=== PATIENT | female | born 1970 | race Caucasian/White ===

== ENCOUNTER → 2016-12-10 | Outpatient (CLI) | payer BC ==
--- NOTE | 2016-12-14 09:15 | MM ---
Reason for exam: screening (asymptomatic). Last mammogram was performed 4 years ago. History: Family history of breast cancer in maternal aunt at age 50 and breast cancer in paternal aunt at age 50. Physical Findings: A clinical breast exam by your physician is recommended on an annual basis and results should be correlated with mammographic findings. MG 3D Screening Mammo W/Cad Bilateral CC and MLO view(s) were taken. Prior study comparison: December 15, 2012, bilateral digital screening mammo w/CAD. There are scattered fibroglandular densities. Focal asymmetry in the right breast upper outer quadrant, stable. No significant changes when compared with prior studies. ASSESSMENT: Benign, BI-RAD 2 RECOMMENDATION: Routine screening mammogram of both breasts in 1 year.
== END | disposition home or self-care (01) ==
LOC: RADMAMWWP 13:02
PROVIDERS: ATTEND Family Medicine
DX: Z12.31 Encounter for screening mammogram for malignant neoplasm of breast (principal)
CPT/HCPCS: 77063; G0202

== ENCOUNTER → 2021-05-22 | Outpatient (CLI) | payer BC ==
--- NOTE | 2021-05-26 09:57 | MM ---
Reason for exam: screening (asymptomatic). Last mammogram was performed 4 years and 5 months ago. History: Family history of breast cancer in maternal aunt at age 50 and breast cancer in paternal aunt at age 50. Physical Findings: A clinical breast exam by your physician is recommended on an annual basis and results should be correlated with mammographic findings. MG 3D Screening Mammo W/Cad Bilateral CC and MLO view(s) were taken. Prior study comparison: December 10, 2016, bilateral MG 3d screening mammo w/cad. There are scattered fibroglandular densities. No significant changes when compared with prior studies. ASSESSMENT: Benign, BI-RAD 2 RECOMMENDATION: Routine screening mammogram of both breasts in 1 year.
== END | disposition home or self-care (01) ==
LOC: RADMAMWWP 13:59
PROVIDERS: ATTEND Obstetrics & Gynecology
DX: Z12.31 Encounter for screening mammogram for malignant neoplasm of breast (principal); Z80.3 Family history of malignant neoplasm of breast
CPT/HCPCS: 77063; 77067

== ENCOUNTER 2021-11-16 14:45 | Emergency (ER) | payer BC ==
[2021-11-16 14:59] VITALS: RESP 18
[2021-11-16] MEDS ORDERED: SODIUM CHLORIDE 0.9% 500 ML 500 ML IV STA (15:22)
--- NOTE | 2021-11-16 15:28 | ED ---
General Adult HPI - General Chief complaint: Abdominal Pain Stated complaint: Bowel Issues Time Seen by Provider: 11/16/21 15:15 Source: patient, RN notes reviewed, old records reviewed Mode of arrival: ambulatory Limitations: no limitations - History of Present Illness Initial comments: 51-year-old female presents to the emergency room with complaints of abdominal bloating and fullness and has not had a good bowel movement in over 2 weeks. She did see her primary care doctor and had blood work and a CAT scan done last Wednesday at [facility]. She was told she was constipated with no bowel obstruction, an umbilical hernia and something on her live and to followup with her primary. Her PCP has her scheduled for an MRI for liver protocol on 11/26/21. Patient denies any pain. She has not noticed any blood in her stool and she denies any fevers or vomiting. She states that her stools have become more narrow, she has had skinny bowel movements over the past 2 weeks. She is concerned about her bowel movements and bloating and sensation of feeling full when eating. -: week(s) (2) Location: abdomen Severity scale (1-10): 0 Associated Symptoms: loss of appetite, other (bloating) - Related Data Allergies Allergy/AdvReac Type Severity Reaction Status Date / Time Sulfa (Sulfonamide Allergy Rash/Hives Verified 11/16/21 15:01 Antibiotics) Review of Systems ROS Statement: Those systems with pertinent positive or pertinent negative responses have been documented in the HPI. ROS Other: All systems not noted in ROS Statement are negative. Past Medical History History of Any Multi-Drug Resistant Organisms: None Reported Past Surgical History: Tonsillectomy, Tubal Ligation Past Psychological History: Anxiety, Depression Smoking Status: Never smoker Past Alcohol Use History: Rare Past Drug Use History: None Reported General Exam Limitations: no limitations General appearance: alert, in no apparent distress Head exam: Present: atraumatic, normocephalic, normal inspection Eye exam: Present: normal appearance, EOMI. Absent: scleral icterus, conjunctival injection Neck exam: Present: normal inspection, full ROM. Absent: tenderness, meningismus, lymphadenopathy Respiratory exam: Present: normal lung sounds bilaterally. Absent: respiratory distress, wheezes, rales, rhonchi, decreased breath sounds Cardiovascular Exam: Present: regular rate, normal rhythm, normal heart sounds. Absent: systolic murmur, diastolic murmur, rubs, gallop, clicks GI/Abdominal exam: Present: soft. Absent: distended, tenderness, guarding, rebound, rigid Extremities exam: Present: normal inspection, full ROM, normal capillary refill. Absent: tenderness, pedal edema, joint swelling, calf tenderness Back exam: Present: normal inspection, full ROM. Absent: tenderness, CVA tenderness (R), CVA tenderness (L), rash noted Neurological exam: Present: alert, oriented X3 Psychiatric exam: Present: normal affect, normal mood, anxious Skin exam: Present: warm, dry, intact, normal color. Absent: rash, cyanosis, diaphoretic Course Vital Signs 11/16/21 11/16/21 14:50 18:13 Temperature 97.6 F 98.1 F Pulse Rate 98 85 Respiratory 18 18 Rate Blood Pressure 162/95 144/83 O2 Sat by Pulse 100 97 Oximetry Medical Decision Making - Medical Decision Making 51-year-old well appearing female presents with complaints of abdominal bloating and fullness and has not had a good bowel movement in over 2 weeks. X-ray of the abdomen shows nonspecific nonobstructive bowel gas pattern. There is air-fluid levels seen of the right hemicolon. There is no visceromegaly or pneumoperitoneum. Records of CT abdomen and pelvis with oral and IV contrast that was completed at [facility] were reviewed. Impression was no evidence of acute abdominal process, large stool burden throughout the colon. There was a nonobstructing left renal calculus. Fibroid uterus, hepatic cyst, an indeterminate lesion measuring 15 mm in the right hepatic lobe could be confirmed as a hemangioma with MRI. Patient states that she does have a MRI appointment on November 26. Vital signs are stable. Labs in the ER today are unremarkable with no significant change from labs obtained at [facility] on November 07. Patient will be discharged home and directed to follow with her primary care doctor and keep her appointment for MRI as scheduled. Return to the emergency room with any new or concerning symptoms. Advance her diet slowly. Patient is agreeable to this plan of care. Case discussed with Dr. Quiroz - Lab Data Result diagrams: 11/16/21 15:43 11/16/21 15:43 Lab Results 11/16/21 11/16/21 11/16/21 Range/Units 15:32 15:43 15:43 WBC 5.7 (3.8-10.6) k/uL RBC 4.48 (3.80-5.40) m/uL Hgb 14.4 (11.4-16.0) gm/dL Hct 41.6 (34.0-46.0) % MCV 92.7 (80.0-100.0) fL MCH 32.1 (25.0-35.0) pg MCHC 34.7 (31.0-37.0) g/dL RDW 11.9 (11.5-15.5) % Plt Count 306 (150-450) k/uL MPV 6.8 Neutrophils % 50 % Lymphocytes % 37 % Monocytes % 5 % Eosinophils % 6 % Basophils % 1 % Neutrophils # 2.9 (1.3-7.7) k/uL Lymphocytes # 2.1 (1.0-4.8) k/uL Monocytes # 0.3 (0-1.0) k/uL Eosinophils # 0.4 (0-0.7) k/uL Basophils # 0.0 (0-0.2) k/uL PT 10.8 (9.0-12.0) sec INR 1.0 (<1.2) APTT 25.9 (22.0-30.0) sec Sodium (137-145) mmol/L Potassium (3.5-5.1) mmol/L Chloride (98-107) mmol/L Carbon Dioxide (22-30) mmol/L Anion Gap mmol/L BUN (7-17) mg/dL Creatinine (0.52-1.04) mg/dL Est GFR (CKD-EPI)AfAm (>60 ml/min/1.73 sqM) Est GFR (CKD-EPI)NonAf (>60 ml/min/1.73 sqM) Glucose (74-99) mg/dL Plasma Lactic Acid Taurus (0.7-2.0) mmol/L Calcium (8.4-10.2) mg/dL Total Bilirubin (0.2-1.3) mg/dL AST (14-36) U/L ALT (4-34) U/L Alkaline Phosphatase (38-126) U/L Total Protein (6.3-8.2) g/dL Albumin (3.5-5.0) g/dL Amylase (30-110) U/L Lipase (23-300) U/L Urine Color Light Yellow Urine Appearance Cloudy H (Clear) Urine pH 6.5 (5.0-8.0) Ur Specific Carver 1.004 (1.001-1.035) Urine Protein Negative (Negative) Urine Glucose (UA) Negative (Negative) Urine Ketones Negative (Negative) Urine Blood Small H (Negative) Urine Nitrite Negative (Negative) Urine Bilirubin Negative (Negative) Urine Urobilinogen <2.0 (<2.0) mg/dL Ur Leukocyte Esterase Large H (Negative) Urine RBC 2 (0-5) /hpf Urine WBC 7 H (0-5) /hpf Ur Squamous Epith Cells 1 (0-4) /hpf Amorphous Sediment Rare H (None) /hpf Urine Bacteria Many H (None) /hpf 11/16/21 11/16/21 Range/Units 15:43 15:43 WBC (3.8-10.6) k/uL RBC (3.80-5.40) m/uL Hgb (11.4-16.0) gm/dL Hct (34.0-46.0) % MCV (80.0-100.0) fL MCH (25.0-35.0) pg MCHC (31.0-37.0) g/dL RDW (11.5-15.5) % Plt Count (150-450) k/uL MPV Neutrophils % % Lymphocytes % % Monocytes % % Eosinophils % % Basophils % % Neutrophils # (1.3-7.7) k/uL Lymphocytes # (1.0-4.8) k/uL Monocytes # (0-1.0) k/uL Eosinophils # (0-0.7) k/uL Basophils # (0-0.2) k/uL PT (9.0-12.0) sec INR (<1.2) APTT (22.0-30.0) sec Sodium 137 (137-145) mmol/L Potassium 4.2 (3.5-5.1) mmol/L Chloride 105 (98-107) mmol/L Carbon Dioxide 25 (22-30) mmol/L Anion Gap 7 mmol/L BUN 9 (7-17) mg/dL Creatinine 0.56 (0.52-1.04) mg/dL Est GFR (CKD-EPI)AfAm >90 (>60 ml/min/1.73 sqM) Est GFR (CKD-EPI)NonAf >90 (>60 ml/min/1.73 sqM) Glucose 109 H (74-99) mg/dL Plasma Lactic Acid Taurus 0.8 (0.7-2.0) mmol/L Calcium 9.0 (8.4-10.2) mg/dL Total Bilirubin 0.4 (0.2-1.3) mg/dL AST 28 (14-36) U/L ALT 16 (4-34) U/L Alkaline Phosphatase 63 (38-126) U/L Total Protein 6.5 (6.3-8.2) g/dL Albumin 3.9 (3.5-5.0) g/dL Amylase 58 (30-110) U/L Lipase 64 (23-300) U/L Urine Color Urine Appearance (Clear) Urine pH (5.0-8.0) Ur Specific Carver (1.001-1.035) Urine Protein (Negative) Urine Glucose (UA) (Negative) Urine Ketones (Negative) Urine Blood (Negative) Urine Nitrite (Negative) Urine Bilirubin (Negative) Urine Urobilinogen (<2.0) mg/dL Ur Leukocyte Esterase (Negative) Urine RBC (0-5) /hpf Urine WBC (0-5) /hpf Ur Squamous Epith Cells (0-4) /hpf Amorphous Sediment (None) /hpf Urine Bacteria (None) /hpf Disposition Clinical Impression: Abdominal pain Disposition: HOME SELF-CARE Condition: Good Instructions (If sedation given, give patient instructions): Abdominal Pain (ED) Additional Instructions: Advance your diet slowly and increase your fluid intake. Keep your appointment for your MRI scheduled on November 26. Follow-up with your primary care doctor next week as needed. Return to the emergency room with any new or concerning symptoms including increased pain, fevers or persistent vomiting.. Is patient prescribed a controlled substance at d/c from ED?: No Referrals: Juan Richter MD [Primary Care Provider] - 1-2 days Time of Disposition: 17:56
--- NOTE | 2021-11-16 15:44 | XR ---
EXAMINATION TYPE: XR KUB DATE OF EXAM: 11/16/2021 3:33 PM CLINICAL HISTORY: Abdominal pain TECHNIQUE: Single supine KUB image of the abdomen is obtained. COMPARISON: None. FINDINGS: Some air-fluid levels are seen in the right colon. There is a paucity of gas over the pelvi s. No dilated loops of small bowel are noted.. Gas and fecal material is seen in non-distended colon. There is no visceromegaly, pneumoperitoneum, or abnormal calcification appreciated. The lung bases a re clear and the osseous structures are intact. IMPRESSION: Nonspecific, nonobstructive bowel gas pattern. A few air-fluid levels are seen over the right hemicol on.
[2021-11-16 16:11] LABS: Partial Thromboplastin Time 25.9 sec (22.0-30.0); Prothrombin Time 10.8 sec (9.0-12.0)
[2021-11-16 16:12] LABS: ALT 16 U/L (4-34); AST 28 U/L (14-36); African American GFR (CKD) >90 (>60 ml/min/1.73 sqM); Albumin 3.9 g/dL (3.5-5.0); Alkaline Phosphatase 63 U/L (38-126); Amylase 58 U/L (30-110); Anion Gap 7 mmol/L; Blood Urea Nitrogen 9 mg/dL (7-17); Carbon Dioxide 25 mmol/L (22-30); Chloride 105 mmol/L (98-107); Glucose 109 mg/dL (74-99); Lipase 64 U/L (23-300); Non-African American GFR(CKD) >90 (>60 ml/min/1.73 sqM); Potassium 4.2 mmol/L (3.5-5.1); Sodium 137 mmol/L (137-145); Total Bilirubin 0.4 mg/dL (0.2-1.3); Total Protein 6.5 g/dL (6.3-8.2)
[2021-11-16 16:13] LABS: Basophils % (A) 1 %; Eosinophils # (A) 0.4 k/uL (0-0.7); Eosinophils % (A) 6 %; HCT 41.6 % (34.0-46.0); HGB 14.4 gm/dL (11.4-16.0); Lymphocytes # (A) 2.1 k/uL (1.0-4.8); Lymphocytes % (A) 37 %; MCH 32.1 pg (25.0-35.0); MCHC 34.7 g/dL (31.0-37.0); MCV 92.7 fL (80.0-100.0); Mean Platelet Volume 6.8; Monocytes # (A) 0.3 k/uL (0-1.0); Monocytes % (A) 5 %; Neutrophils # (A) 2.9 k/uL (1.3-7.7); Neutrophils % (A) 50 %; Platelet Count 306 k/uL (150-450); RBC 4.48 m/uL (3.80-5.40); RDW 11.9 % (11.5-15.5); WBC 5.7 k/uL (3.8-10.6)
[2021-11-16 16:22] LABS: Amorphous Sediment,Urine Rare /hpf; Appearance,Urine Cloudy (Clear); Bacteria,Urine Many /hpf; Bilirubin,Urine Negative (Negative); Blood,Urine Small (Negative); Color,Urine Light Yellow; Glucose,Urine (UA) Negative (Negative); Ketones,Urine Negative (Negative); Leukocyte Esterase,Urine Large (Negative); Nitrite,Urine Negative (Negative); PH, Urine 6.5 (5.0-8.0); Protein,Urine Negative (Negative); RBC,Urine 2 /hpf (0-5); Specific Gravity,Urine 1.004 (1.001-1.035); Squamous Epithelial Cell,Urine 1 /hpf (0-4); Urobilinogen,Urine <2.0 mg/dL (<2.0); WBC,Urine 7 /hpf (0-5)
[2021-11-16 18:14] VITALS: BP 144/83; PULSE 85; TEMP 98.1
== END 2021-11-16 18:14 | disposition home or self-care (01) ==
LOC: EC 14:45
DX: R14.0 Abdominal distension (gaseous) (principal); F41.9 Anxiety disorder, unspecified; F32.A Depression, unspecified; Z88.2 Allergy status to sulfonamides; Z98.51 Tubal ligation status
CPT/HCPCS: 36415; 74018; 80053; 81001; 82150; 83605; 83690; 85025; 85610; 85730; 99284

== ENCOUNTER 2021-12-08 15:06 | Emergency (ER) | payer BC, OTHER ==
[2021-12-08] MEDS ORDERED: SODIUM CHLORIDE 0.9% 1,000 ML IV STA (16:23)
[2021-12-08] MEDS ORDERED: ONDANSETRON 4 MG/2 ML VIAL IVP STA (16:23)
[2021-12-08] MEDS ORDERED: FAMOTIDINE 20 MG/2 ML VIAL IV STA (16:35)
[2021-12-08 17:05] LABS: Basophils % (A) 0 %; Eosinophils # (A) 0.1 k/uL (0-0.7); Eosinophils % (A) 2 %; HCT 39.6 % (34.0-46.0); HGB 13.3 gm/dL (11.4-16.0); Lymphocytes # (A) 0.9 k/uL (1.0-4.8); Lymphocytes % (A) 19 %; MCH 32.1 pg (25.0-35.0); MCHC 33.5 g/dL (31.0-37.0); MCV 95.7 fL (80.0-100.0); Monocytes # (A) 0.2 k/uL (0-1.0); Monocytes % (A) 4 %; Neutrophils # (A) 3.3 k/uL (1.3-7.7); Neutrophils % (A) 73 %; Platelet Count 220 k/uL (150-450); RBC 4.14 m/uL (3.80-5.40); RDW 12.7 % (11.5-15.5); WBC 4.6 k/uL (3.8-10.6)
[2021-12-08 17:09] LABS: Appearance,Urine Cloudy (Clear); Bacteria,Urine Many /hpf; Bilirubin,Urine Negative (Negative); Blood,Urine Trace (Negative); Color,Urine Yellow; Glucose,Urine (UA) Negative (Negative); Ketones,Urine Negative (Negative); Leukocyte Esterase,Urine Large (Negative); Mucus,Urine Few /hpf; Nitrite,Urine Negative (Negative); Protein,Urine Trace (Negative); RBC,Urine 5 /hpf (0-5); Specific Gravity,Urine 1.021 (1.001-1.035); Squamous Epithelial Cell,Urine 8 /hpf (0-4); WBC,Urine 81 /hpf (0-5)
[2021-12-08 17:18] LABS: ALT 13 U/L (4-34); AST 21 U/L (14-36); African American GFR (CKD) >90 (>60 ml/min/1.73 sqM); Albumin 3.2 g/dL (3.5-5.0); Alkaline Phosphatase 64 U/L (38-126); Anion Gap 6 mmol/L; Blood Urea Nitrogen 7 mg/dL (7-17); Calcium 7.7 mg/dL (8.4-10.2); Carbon Dioxide 24 mmol/L (22-30); Chloride 105 mmol/L (98-107); Glucose 93 mg/dL (74-99); Lipase 53 U/L (23-300); Non-African American GFR(CKD) >90 (>60 ml/min/1.73 sqM); Partial Thromboplastin Time 22.7 sec (22.0-30.0); Potassium 3.4 mmol/L (3.5-5.1); Prothrombin Time 10.6 sec (9.0-12.0); Sodium 135 mmol/L (137-145); Total Bilirubin 0.4 mg/dL (0.2-1.3); Total Protein 5.8 g/dL (6.3-8.2)
--- NOTE | 2021-12-08 17:24 | ED ---
General Adult HPI - General Chief complaint: Abdominal Pain Stated complaint: Nausea/Vomiting/Female GI Time Seen by Provider: 12/08/21 15:41 Source: patient Mode of arrival: ambulatory Limitations: no limitations - History of Present Illness Initial comments: This 51-year-old female presents emergency department with abdominal pain, nausea, vomiting and fever yesterday. Patient states over the last month she has been having "bowel issues for the last 4 weeks." Patient states she has been trying the soft bland diet for the last month until she sees Dr. Yu on January 13. Patient states she has been having episodes of constipation and abdominal bloating for the last month, but over the last week felt okay until yesterday. Patient states yesterday morning at 3 AM patient woke up with abdominal pain and began having nausea and diarrhea that lasted until about 10 AM. Patient states she took her temperature around noon when she had a fever of 101.3. Patient began taking Tylenol at this time which did decrease her temperature. Patient stated after taking Tylenol 2 times yesterday at 12 PM and 8 PM she has not had any fever, nausea, vomiting or diarrhea since her presents here today for evaluation due to her vomiting and diarrhea yesterday. Patient states since yesterday she has still been having diffuse pain in all of her abdomen, however it seems a little bit worse and her left lower and left upper quadrant pain. Patient denies any chest pain, shortness of breath, headache, lightheadedness, dizziness, weakness, change in vision, changes in urination/burning/frequency/hesitancy/dribbling. Patient denies any vomiting, diarrhea or fever today but states she still having the pain. - Related Data Home Medications Medication Instructions Recorded Confirmed ALPRAZolam [Xanax] 1 mg PO DAILY 12/08/21 12/08/21 ALPRAZolam [Xanax] 4 mg PO HS 12/08/21 12/08/21 Venlafaxine HCl ER [Effexor Xr] 75 mg PO DAILY 12/08/21 12/08/21 Venlafaxine HCl [Effexor XR] 150 mg PO DAILY 12/08/21 12/08/21 Previous Rx's Medication Instructions Recorded Cephalexin [Keflex] 1,000 mg PO Q12HR #20 cap 12/08/21 Famotidine [Pepcid] 20 mg PO BID #28 tablet 12/08/21 Omeprazole 20 mg PO BID #28 tab 12/08/21 Allergies Allergy/AdvReac Type Severity Reaction Status Date / Time Sulfa (Sulfonamide Allergy Rash/Hives Verified 12/08/21 18:28 Antibiotics) Review of Systems ROS Statement: Those systems with pertinent positive or pertinent negative responses have been documented in the HPI. ROS Other: All systems not noted in ROS Statement are negative. Past Medical History Past Medical History: No Reported History History of Any Multi-Drug Resistant Organisms: None Reported Past Surgical History: Tonsillectomy, Tubal Ligation Past Psychological History: Anxiety, Depression Smoking Status: Never smoker Past Alcohol Use History: Rare Past Drug Use History: None Reported General Exam Limitations: no limitations General appearance: alert, in no apparent distress Head exam: Present: atraumatic, normocephalic Eye exam: Present: normal appearance, PERRL, EOMI Pupils: Present: normal accommodation ENT exam: Present: mucous membranes moist Neck exam: Present: full ROM. Absent: tenderness, meningismus Respiratory exam: Present: normal lung sounds bilaterally. Absent: respiratory distress, wheezes, rales, rhonchi, stridor Cardiovascular Exam: Present: regular rate, normal rhythm, normal heart sounds. Absent: systolic murmur, diastolic murmur, rubs, gallop, clicks GI/Abdominal exam: Present: soft, tenderness (Tender to left lower quadrant and left upper quadrant lower>upper), normal bowel sounds. Absent: distended, guarding, rebound, rigid Extremities exam: Present: full ROM, normal capillary refill. Absent: pedal edema, joint swelling, calf tenderness Back exam: Present: normal inspection, full ROM. Absent: CVA tenderness (R), CVA tenderness (L), paraspinal tenderness, vertebral tenderness Neurological exam: Present: alert, oriented X3, CN II-XII intact Psychiatric exam: Present: normal affect, normal mood Skin exam: Present: warm, dry, intact, normal color. Absent: rash Course Vital Signs 12/08/21 12/08/21 12/08/21 15:07 17:15 21:23 Temperature 98.6 F 98.7 F Pulse Rate 100 62 82 Respiratory 16 18 19 Rate Blood Pressure 146/81 132/82 141/80 O2 Sat by Pulse 99 99 97 Oximetry Medical Decision Making - Medical Decision Making This 51-year-old female presents emergency Department with generalized abdominal pain, worse in the upper left and lower left quadrants over the last couple days. Patient has been having abdominal issues over the last month and does have a follow-up appointment with Dr. Yu in January. Labs on any acute abnormalities. Patient does have urinary tract infection and was given 1 g of Rocephin IV along with Keflex prescription for home. CT without free fluid in the pelvis of uncertain significance. No evidence of appendicitis. Nonobstructing small left 3 mm calculus at the lower pole of the left kidney. Patient without any white blood cell count, fever, or CVA tenderness. I did instruct patient to return to the emergency department if she does get fever, back pain, or experiences any nausea, vomiting. Strict return precautions were discussed. Patient instructed to follow up with her primary care provider in next 1-2 days, I was able to provide her with a couple new primary care provid ers as she stated she would like to see somebody else. I did instruct her to call Dr. Yu's office tomorrow morning to see if she could get her appointment moved up. Patient verbally agreed to plan. Patient sent home in stable condition. Case discussed with my attending, Dr. Bear who instructed me to discharge patient on antibiotics along with Tylenol 3, famotidine and omeprazole. - Lab Data Result diagrams: 12/08/21 16:55 12/08/21 16:55 Lab Results 12/08/21 12/08/21 12/08/21 Range/Units 16:55 16:55 16:55 WBC 4.6 (3.8-10.6) k/uL RBC 4.14 (3.80-5.40) m/uL Hgb 13.3 (11.4-16.0) gm/dL Hct 39.6 (34.0-46.0) % MCV 95.7 (80.0-100.0) fL MCH 32.1 (25.0-35.0) pg MCHC 33.5 (31.0-37.0) g/dL RDW 12.7 (11.5-15.5) % Plt Count 220 (150-450) k/uL MPV 7.0 Neutrophils % 73 % Lymphocytes % 19 % Monocytes % 4 % Eosinophils % 2 % Basophils % 0 % Neutrophils # 3.3 (1.3-7.7) k/uL Lymphocytes # 0.9 L (1.0-4.8) k/uL Monocytes # 0.2 (0-1.0) k/uL Eosinophils # 0.1 (0-0.7) k/uL Basophils # 0.0 (0-0.2) k/uL PT (9.0-12.0) sec INR (<1.2) APTT (22.0-30.0) sec Sodium 135 L (137-145) mmol/L Potassium 3.4 L (3.5-5.1) mmol/L Chloride 105 (98-107) mmol/L Carbon Dioxide 24 (22-30) mmol/L Anion Gap 6 mmol/L BUN 7 (7-17) mg/dL Creatinine 0.50 L (0.52-1.04) mg/dL Est GFR (CKD-EPI)AfAm >90 (>60 ml/min/1.73 sqM) Est GFR (CKD-EPI)NonAf >90 (>60 ml/min/1.73 sqM) Glucose 93 (74-99) mg/dL Plasma Lactic Acid Taurus (0.7-2.0) mmol/L Calcium 7.7 L (8.4-10.2) mg/dL Magnesium (1.6-2.3) mg/dL Total Bilirubin 0.4 (0.2-1.3) mg/dL AST 21 (14-36) U/L ALT 13 (4-34) U/L Alkaline Phosphatase 64 (38-126) U/L Total Protein 5.8 L (6.3-8.2) g/dL Albumin 3.2 L (3.5-5.0) g/dL Lipase 53 (23-300) U/L Urine Color Yellow Urine Appearance Cloudy H (Clear) Urine pH 6.0 (5.0-8.0) Ur Specific [place] 1.021 (1.001-1.035) Urine Protein Trace H (Negative) Urine Glucose (UA) Negative (Negative) Urine Ketones Negative (Negative) Urine Blood Trace H (Negative) Urine Nitrite Negative (Negative) Urine Bilirubin Negative (Negative) Urine Urobilinogen 2.0 (<2.0) mg/dL Ur Leukocyte Esterase Large H (Negative) Urine RBC 5 (0-5) /hpf Urine WBC 81 H (0-5) /hpf Ur Squamous Epith Cells 8 H (0-4) /hpf Urine Bacteria Many H (None) /hpf Urine Mucus Few H (None) /hpf 12/08/21 12/08/21 12/08/21 Range/Units 16:55 16:55 16:55 WBC (3.8-10.6) k/uL RBC (3.80-5.40) m/uL Hgb (11.4-16.0) gm/dL Hct (34.0-46.0) % MCV (80.0-100.0) fL MCH (25.0-35.0) pg MCHC (31.0-37.0) g/dL RDW (11.5-15.5) % Plt Count (150-450) k/uL MPV Neutrophils % % Lymphocytes % % Monocytes % % Eosinophils % % Basophils % % Neutrophils # (1.3-7.7) k/uL Lymphocytes # (1.0-4.8) k/uL Monocytes # (0-1.0) k/uL Eosinophils # (0-0.7) k/uL Basophils # (0-0.2) k/uL PT 10.6 (9.0-12.0) sec INR 1.0 (<1.2) APTT 22.7 (22.0-30.0) sec Sodium (137-145) mmol/L Potassium (3.5-5.1) mmol/L Chloride (98-107) mmol/L Carbon Dioxide (22-30) mmol/L Anion Gap mmol/L BUN (7-17) mg/dL Creatinine (0.52-1.04) mg/dL Est GFR (CKD-EPI)AfAm (>60 ml/min/1.73 sqM) Est GFR (CKD-EPI)NonAf (>60 ml/min/1.73 sqM) Glucose (74-99) mg/dL Plasma Lactic Acid Taurus 0.7 (0.7-2.0) mmol/L Calcium (8.4-10.2) mg/dL Magnesium 2.0 (1.6-2.3) mg/dL Total Bilirubin (0.2-1.3) mg/dL AST (14-36) U/L ALT (4-34) U/L Alkaline Phosphatase (38-126) U/L Total Protein (6.3-8.2) g/dL Albumin (3.5-5.0) g/dL Lipase (23-300) U/L Urine Color Urine Appearance (Clear) Urine pH (5.0-8.0) Ur Specific [place] (1.001-1.035) Urine Protein (Negative) Urine Glucose (UA) (Negative) Urine Ketones (Negative) Urine Blood (Negative) Urine Nitrite (Negative) Urine Bilirubin (Negative) Urine Urobilinogen (<2.0) mg/dL Ur Leukocyte Esterase (Negative) Urine RBC (0-5) /hpf Urine WBC (0-5) /hpf Ur Squamous Epith Cells (0-4) /hpf Urine Bacteria (None) /hpf Urine Mucus (None) /hpf Disposition Clinical Impression: Abdominal pain, Urinary tract infection, Kidney stone on left side Disposition: HOME SELF-CARE Condition: Stable Instructions (If sedation given, give patient instructions): Kidney Stones (ED), Urinary Tract Infection in Women (ED), Abdominal Pain (ED) Prescriptions: Cephalexin [Keflex] 1,000 mg PO Q12HR #20 cap Omeprazole 20 mg PO BID #28 tab Famotidine [Pepcid] 20 mg PO BID #28 tablet Is patient prescribed a controlled substance at d/c from ED?: No Referrals: Juan Richter MD [Primary Care Provider] - 1-2 days Yaneth Yu MD [STAFF PHYSICIAN] - 1-2 days Rachel Galeano NPC [STAFF PHYSICIAN] - 1-2 days Manohar Salguero [STAFF PHYSICIAN] - 1-2 days Time of Disposition: 20:29
--- NOTE | 2021-12-08 18:28 | CT ---
EXAMINATION TYPE: CT abdomen pelvis w con DATE OF EXAM: 12/08/2021 COMPARISON: 11/07/2021 HISTORY: Abdominal pain with nausea, vomiting and diarrhea. CT DLP: 1441.6 mGycm Automated exposure control for dose reduction was used. CONTRAST: Performed with IV Contrast, patient injected with 100 mL of Isovue 300. Images obtained from the diaphragm to the floor the pelvis with IV contrast. Lung bases are clear. There is no pleural effusion. Heart size is normal. There is no pericardial eff usion. Liver has normal size. There is 5 cm cyst in the anterior right lobe of the liver. There is 1 cm hypodensity consistent with cyst in the inferior right lobe of the liver. Gallbladder appears norm al. There is a phrygian cap on the gallbladder. Spleen is intact. There is no pancreatic mass. Stomac h is intact. There is no adrenal mass. Kidneys show satisfactory contrast opacification. There is a 3 mm calculus lower pole left kidney. There is no hydronephrosis. The ureters are not dilated. Delayed images show normal renal excretion. Bladder distends smoothly. There is no inguinal hernia. Uterus is anteverted. There is small amount of low-density fluid in the pelvis. There is no sign of a pelvic mass. There i s no evidence of thickened appendix. Appendix appears to be posterior and small. There is no mesenteric edema. There is no ascites or free air. There is no bowel obstruction. The lumbar vertebrae have normal alignment. There is vacuum disc at L4-5 and L5-S1. There is no compr ession fracture. The bony pelvis appears intact. IMPRESSION: Small amount of low-density free fluid in the pelvis of uncertain significance. No evidence of append icitis. Nonobstructing small left renal calculus.
[2021-12-08] MEDS ORDERED: PANTOPRAZOLE 40 MG TABLET PO STA (20:22)
[2021-12-08] MEDS ORDERED: NITROFURANTOIN MONOHYD/M-CRYST 100 MG CAP PO STA (20:22)
[2021-12-08] MEDS ORDERED: ACET/COD 300 MG/30 MG STARTER PACK 6 TAB BTL PO STA (20:22)
[2021-12-08] MEDS ORDERED: cefTRIAXone IN SWFI 1,000 MG/10 ML SYRINGE IVP STA ×2 (20:34→20:44)
[2021-12-08 21:32] VITALS: BP 141/80; PULSE 82; RESP 19; TEMP 98.7
== END 2021-12-08 21:30 | disposition home or self-care (01) ==
LOC: EC 15:06
DX: N39.0 Urinary tract infection, site not specified (principal); N20.0 Calculus of kidney; F32.A Depression, unspecified; F41.9 Anxiety disorder, unspecified; Z79.899 Other long term (current) drug therapy
CPT/HCPCS: 36415; 93005; 80053; 83605; 83690; 83735; 85025; 85610; 85730; 81001; 87086; 74177; 99284; 96374; 96375 ×2; 96376; 96361 ×2; J2405; J0696; Q9967

== ENCOUNTER 2021-12-19 10:41 | Day surgery (SDC) | payer BC, OTHER ==
[2021-12-17 12:39] VITALS: BMI 34.7
[~2021-12-19 10:41] MED LIST: LACTATED RINGERS 1,000 ML IV SCH
[2021-12-19 11:35] VITALS: TEMP 97
[2021-12-19] MEDS ORDERED: LIDOCAINE 1% INJ 10MG/ML (20 ML MDV) ONE (13:16)
[2021-12-19] MEDS ORDERED: PROPOFOL 10 MG/ML 20 ML VIAL IV ONE (13:16)
--- NOTE | 2021-12-19 13:45 | P.PCN ---
Date of Procedure: 12/19/21 Procedure(s) Performed: Brief history: Patient is a pleasant 51-year-old white female scheduled for an elective upper endoscopy as well as colonoscopy as a part of evaluation of epigastric pain, lower abdominal pain and change in bowel habits for the last 7-8 weeks duration. Procedure performed: Esophagogastroduodenoscopy with biopsy Colonoscopy Preoperative diagnosis: Epigastric and left upper abdominal pain 6 weeks duration Change in bowel habits Anesthesia: MAC Procedure: After informed consent was obtained from the patient was brought into the endoscopy unit and IV sedation was administered by anesthesia under continuous monitoring. Initially upper endoscopy was done. The Olympus GF 160 video endoscope was inserted inserted into the mouth and esophagus intubated without any difficulty and was gradually advanced into the stomach and duodenum and carefully examined. The bulb and second part of the duodenum appeared normal. The scope was then withdrawn into the stomach adequately insufflated with air and upon careful examination the antrum had patchy areas of erythema in the prepyloric area which was biopsied. The body, cardia and fundus appeared normal. The scope was then withdrawn into the esophagus. The GE junction was located at 40 cm to the incisors. It appeared regular with no erythema erosions or ulcerations. Rest of the esophagus appeared normal. Abscesses were done from the distal esophagus Patient tolerated the procedure well. At this time the patient continued to remain sedation. Initial digital rectal examination was normal. Olympus CF 160 video colonoscope was then inserted into the rectum and gradually advanced to the cecum without any difficulty. Careful examination was performed as the scope was gradually being withdrawn. The prep was excellent. The cecum, ascending colon, transverse colon, descending colon, sigmoid colon and rectum appeared normal. Retroflexion was performed in the rectum and no lesions were noted. Patient tolerated the procedure well. Impression: 1. Upper endoscopy revealed minimal antral gastritis but no evidence of esophagitis or peptic ulcer 2. Colonoscopy was within normal limits with no evidence of colorectal Recommendations: Findings of this examination were discussed with the patient as well as her family. She was advised to follow with the biopsy results. Repeat screening colonoscopy in 10 years.
[2021-12-19 13:51] VITALS: RESP 16
[2021-12-19 14:12] VITALS: BP 137/84; PULSE 79
== END 2021-12-19 14:43 | disposition home or self-care (01) ==
LOC: ORWHC2ENDO 10:41
PROVIDERS: ATTEND Internal Medicine Gastroenterology
DX: K29.70 Gastritis, unspecified, without bleeding (principal)
CPT/HCPCS: 45378; 43239; 81025; 88305; J2001; J2704

== ENCOUNTER 2023-09-24 00:28 | Observation (INO) | payer BC, OTHER ==
[2023-09-24 01:39] LABS: Basophils # (A) 0.1 k/uL (0-0.2); Basophils % (A) 1 %; Eosinophils # (A) 0.3 k/uL (0-0.7); Eosinophils % (A) 3 %; HCT 46.3 % (34.0-46.0); HGB 15.8 gm/dL (11.4-16.0); Lymphocytes # (A) 2.3 k/uL (1.0-4.8); Lymphocytes % (A) 23 %; MCH 31.6 pg (25.0-35.0); MCHC 34.2 g/dL (31.0-37.0); MCV 92.2 fL (80.0-100.0); Mean Platelet Volume 7.3; Monocytes # (A) 0.3 k/uL (0-1.0); Monocytes % (A) 3 %; Neutrophils # (A) 7.1 k/uL (1.3-7.7); Neutrophils % (A) 70 %; Platelet Count 252 k/uL (150-450); RBC 5.02 m/uL (3.80-5.40); RDW 12.7 % (11.5-15.5); WBC 10.2 k/uL (3.8-10.6)
[2023-09-24] MEDS ORDERED: SODIUM CHLORIDE 0.9% 1,000 ML IV ONE (01:40)
[2023-09-24] MEDS ORDERED: MORPHINE SULFATE 4 MG/ML SYRINGE IVP STA (01:40)
[2023-09-24] MEDS ORDERED: ONDANSETRON 4 MG/2 ML VIAL IVP STA (01:40)
[2023-09-24 01:54] LABS: ALT 17 U/L (4-34); AST 29 U/L (14-36); African American GFR (CKD) >90 (>60 ml/min/1.73 sqM); Albumin 4.3 g/dL (3.5-5.0); Alkaline Phosphatase 83 U/L (38-126); Amylase 82 U/L (30-110); Anion Gap 11 mmol/L; Blood Urea Nitrogen 14 mg/dL (7-17); Calcium 9.5 mg/dL (8.4-10.2); Carbon Dioxide 26 mmol/L (22-30); Chloride 101 mmol/L (98-107); Glucose 105 mg/dL (74-99); Lipase 97 U/L (23-300); Non-African American GFR(CKD) >90 (>60 ml/min/1.73 sqM); Potassium 4.2 mmol/L (3.5-5.1); Sodium 138 mmol/L (137-145); Total Bilirubin 0.5 mg/dL (0.2-1.3); Total Protein 7.3 g/dL (6.3-8.2)
--- NOTE | 2023-09-24 02:51 | ED ---
General Adult HPI - General Source: patient, RN notes reviewed Mode of arrival: ambulatory Limitations: no limitations <Gema Ryan - Last Filed: 09/25/23 16:19> <Julia Arevalo - Last Filed: 09/25/23 17:34> - General Chief complaint: Abdominal Pain Stated complaint: Abdominal Pain Time Seen by Provider: 09/24/23 01:12 - History of Present Illness Initial comments: 53-year-old female with past medical history presents the emergency department with a chief complaint of right upper quadrant abdominal pain. She reports sudden onset approximately 10:30 PM. It is sharp. It radiates to her right upper shoulder blade. It is not aggravated by anything. She did not take anything at home prior to arrival. She reports associated nausea. Denies known fevers chills, vomiting, changes in stool, hematemesis. Denies recent alcohol use. Denies history of cholecystectomy. (Gema Ryan) - Related Data Home Medications Medication Instructions Recorded Confirmed ALPRAZolam [Xanax] 1 mg PO BID PRN 09/24/23 09/24/23 Venlafaxine HCl ER [Effexor XR] 37.5 mg PO HS 09/24/23 09/24/23 buPROPion [Wellbutrin] 100 mg PO DAILY 09/24/23 09/24/23 traZODone HCL [Desyrel] 50 mg PO HS 09/24/23 09/24/23 Allergies Allergy/AdvReac Type Severity Reaction Status Date / Time Sulfa (Sulfonamide Allergy Rash/Hives Verified 09/24/23 00:35 Antibiotics) sulfamethoxazole Allergy Rash/Hives Verified 09/24/23 08:52 [From Bactrim] trimethoprim [From Bactrim] Allergy Rash/Hives Verified 09/24/23 08:52 Review of Systems ROS Other: All systems not noted in ROS Statement are negative. <Gema Ryan - Last Filed: 09/25/23 16:19> ROS Other: All systems not noted in ROS Statement are negative. <Julia Arevalo - Last Filed: 09/25/23 17:34> ROS Statement: Those systems with pertinent positive or pertinent negative responses have been documented in the HPI. Past Medical History Past Medical History: GERD/Reflux Additional Past Medical History / Comment(s): CHANGE IN BOWEL HABITS, BLOATING, CONSTIPATION, ABD PAIN, N/V History of Any Multi-Drug Resistant Organisms: None Reported Past Surgical History: Tonsillectomy, Tubal Ligation, Uterine Ablation Past Anesthesia/Blood Transfusion Reactions: No Reported Reaction Additional Past Anesthesia/Blood Transfusion Reaction / Comment(s): MOUTH DOES NOT OPEN VERY WIDE Past Psychological History: Anxiety, Depression Smoking Status: Never smoker Past Alcohol Use History: None Reported Past Drug Use History: None Reported - Past Family History Mother Family Medical History: No Reported History <Gema Ryan - Last Filed: 09/25/23 16:19> General Exam Limitations: no limitations <Gema Ryan - Last Filed: 09/25/23 16:19> - General Exam Comments Initial Comments: General: Alert, in no acute distress Head: atraumatic normocephalic. Eyes PERRL, EOMI intact, mucous membranes moist Respiratory: Lungs clear to auscultation bilaterally Cardiovascular: Rate regular rate and rhythm Abdominal: Soft without guarding or rebound, marked right upper quadrant tenderness. Atkins sign positive. Extremities: Normal inspection with full range of motion and normal capillary refill Neuroogic: alert and oriented 3, CN II-XII intact, able to ambulate with steady gait Skin: warm dry and intact with normal color (Gema Ryan) Course <Gema Ryan - Last Filed: 09/25/23 16:19> Vital Signs 09/24/23 09/24/23 09/24/23 00:33 02:00 03:30 Temperature 98.5 F Pulse Rate 86 95 77 Respiratory 20 19 18 Rate Blood Pressure 155/89 127/65 140/77 O2 Sat by Pulse 98 99 96 Oximetry 09/24/23 09/24/23 09/24/23 04:30 06:06 08:43 Temperature 97.6 F 98.1 F Pulse Rate 87 80 68 Respiratory 18 18 18 Rate Blood Pressure 111/69 106/59 120/76 O2 Sat by Pulse 96 95 96 Oximetry 09/24/23 10:42 Temperature Pulse Rate 78 Respiratory 20 Rate Blood Pressure 124/69 O2 Sat by Pulse 97 Oximetry - Reevaluation(s) Reevaluation #1: 09/24/23 02:51 Evaluated. Patient reports symptomatic improvement status post medications. Aware awaiting CT results. (Gema Ryan) Reevaluation #2: 09/24/23 03:49 Patient reevaluated. Patient still complaining of pain. Patient agreeable with the plan for admission. Dr. Ricky adler (Gema Ryan) Reevaluation #3: 09/24/23 03:59 Case is discussed with Dr. García who agrees and accepts the patient for adm ission and recommends HIDA scan with ejection fraction (Gema Ryan) EKG Findings - EKG Comments: EKG Findings:: I interpreted the following: EKG performed at 02:22 rate 70 bpm normal sinus rhythm OK interval 168, QRS duration 97, QT/QTc 383/416 <Gema Ryan - Last Filed: 09/25/23 16:19> Medical Decision Making - Lab Data Result diagrams: 09/24/23 01:28 09/24/23 01:28 <Gema Ryan - Last Filed: 09/25/23 16:19> - Lab Data Result diagrams: 09/24/23 01:28 09/24/23 01:28 <Julia Arevalo - Last Filed: 09/25/23 17:34> - Medical Decision Making Was pt. sent in by a medical professional or institution (, PA, [facility]REL FILLER, urgent care, hospital, or [facility]...) When possible be specific @ -[No] Did you speak to anyone other than the patient for history (EMS, parent, family, police, friend...)? What history was obtained from this source @ -[No] Did you review nursing and triage notes (agree or disagree)? Why? @ -[I reviewed and agree with nursing and triage notes] Were old charts reviewed (outside hosp., previous admission, EMS record, old EKG, old radiological studies, urgent care reports/EKG's, [facility] records)? Report findings @ -[No old charts were reviewed] Differential Diagnosis (chest pain, altered mental status, abdominal pain women, abdominal pain men, vaginal bleeding, weakness, fever, dyspnea, syncope, headache, dizziness, GI bleed, back pain, seizure, CVA, palpatations, mental health, musculoskeletal)? @ -[not applicable] EKG interpreted by me (3pts min.). @ -[As above] X-rays interpreted by me (1pt min.). @ -[None done] CT interpreted by me (1pt min.). @ -yes, below U/S interpreted by me (1pt. min.). @ -[None done] What testing was considered but not performed or refused? (CT, X-rays, U/S, labs)? Why? @ -[None] What meds were considered but not given or refused? Why? @ -[None] Did you discuss the management of the patient with other professionals (professionals i.e. DrBalwinder, PA, [facility] BARREL FILLER, lab, RT, psych nurse, nephrology social worker, electronic engraver, teacher, minesweeping officer, director of casework services)? Give summary @ -Dr. García who recommends adding HIDA scan with ejection fraction and accepts the patient for admission Was smoking cessation discussed for >3mins.? @ -[No] Was critical care preformed (if so, how long)? @ -[No] Were there social determinants of health that impacted care today? How? (Homelessness, low income, unemployed, alcoholism, drug addiction, transportation, low edu. Level, literacy, decrease access to med. care, [facility], rehab)? @ -[No] Was there de-escalation of care discussed even if they declined (Discuss DNR or withdrawal of care, Hospice)? DNR status @ -[No] What co-morbidities impacted this encounter? (DM, HTN, Smoking, COPD, CAD, Cancer, CVA, ARF, Chemo, Hep., AIDS, mental health diagnosis, sleep apnea, morbid obesity)? @ -[None] Was patient admitted / discharged? Hospital course, mention meds given and route, prescriptions, significant lab abnormalities, going to OR and other pertinent info. @ Admission. This is a 53-year-old female with a significant past medical history presents the emergency department with a chief complaint of acute right upper quadrant abdominal pain. Patient had a thorough history and physical exam performed. Abdomen is soft with significant right upper quadrant tenderness. Positive Atkins sign. Upon initial history and physical patient was diaphoretic. Patient had laboratory studies which revealed WBC 10.2, hemoglobin 15.8 sodium 138, potassium 4.2 lactic acid 1.1 negative troponin. Co vid and influenza RSV negative. I interpreted the following: CT abdomen and pelvis reveals about 6 x 6 cm low density lesion to the right hepatic lobe adjacent to the gallbladder. This is similar to prior although mildly increased. Psych represents a cyst., And bile duct is borderline dilated 6-7 mm. Nonobstructing left renal calculus. I discussed the results in detail with the patient verbalized understanding and all questions were addressed. Despite pain management patient's pain is con trolled. She'll be admitted for further observation, pain management and HIDA scan. Case is discussed with Dr. García, surgery who agrees and accepts the patient Case discussed with Dr. Arevalo, ED attending who agrees with plan of care Undiagnosed new problem with uncertain prognosis? @ -[No] Drug Therapy requiring intensive monitoring for toxicity (Heparin, Nitro, Insulin, Cardizem)? @ -[No] Were any procedures done? @ -[No] Diagnosis/symptom? @ -RUQ abdominal pain - Common Bile Duct Dilation Acute, or Chronic, or Acute on Chronic? @ -Acute Uncomplicated (without systemic symptoms) or Complicated (systemic symptoms)? @ -Uncomplicated Side effects of treatment? @ -[No] Exacerbation, Progression, or Severe Exacerbation? @ -[No] Poses a threat to life or bodily function? How? (Chest pain, USA, AR, pneumonia, PE, COPD, DKA, ARF, appy, cholecystitis, CVA, Diverticulitis, Homicidal, Suicidal, threat to staff... and all critical care pts) @ yes (Gema Ryan) - Lab Data Lab Results 09/24/23 09/24/23 09/24/23 Range/Units 01:28 01:28 01:28 WBC 10.2 (3.8-10.6) k/uL RBC 5.02 (3.80-5.40) m/uL Hgb 15.8 (11.4-16.0) gm/dL Hct 46.3 H (34.0-46.0) % MCV 92.2 (80.0-100.0) fL MCH 31.6 (25.0-35.0) pg MCHC 34.2 (31.0-37.0) g/dL RDW 12.7 (11.5-15.5) % Plt Count 252 (150-450) k/uL MPV 7.3 Neutrophils % 70 % Lymphocytes % 23 % Monocytes % 3 % Eosinophils % 3 % Basophils % 1 % Neutrophils # 7.1 (1.3-7.7) k/uL Lymphocytes # 2.3 (1.0-4.8) k/uL Monocytes # 0.3 (0-1.0) k/uL Eosinophils # 0.3 (0-0.7) k/uL Basophils # 0.1 (0-0.2) k/uL Sodium 138 (137-145) mmol/L Potassium 4.2 (3.5-5.1) mmol/L Chloride 101 (98-107) mmol/L Carbon Dioxide 26 (22-30) mmol/L Anion Gap 11 mmol/L BUN 14 (7-17) mg/dL Creatinine 0.61 (0.52-1.04) mg/dL Est GFR (CKD-EPI)AfAm >90 (>60 ml/min/1.73 sqM) Est GFR (CKD-EPI)NonAf >90 (>60 ml/min/1.73 sqM) Glucose 105 H (74-99) mg/dL Plasma Lactic Acid [place] (0.7-2.0) mmol/L Calcium 9.5 (8.4-10.2) mg/dL Total Bilirubin 0.5 (0.2-1.3) mg/dL AST 29 (14-36) U/L ALT 17 (4-34) U/L Alkaline Phosphatase 83 (38-126) U/L Troponin I (0.000-0.034) ng/mL Total Protein 7.3 (6.3-8.2) g/dL Albumin 4.3 (3.5-5.0) g/dL Amylase 82 (30-110) U/L Lipase 97 (23-300) U/L Urine Color Urine Appearance (Clear) Urine pH (5.0-8.0) Ur Specific [place] (1.001-1.035) Urine Protein (Negative) Urine Glucose (UA) (Negative) Urine Ketones (Negative) Urine Blood (Negative) Urine Nitrite (Negative) Urine Bilirubin (Negative) Urine Urobilinogen (<2.0) mg/dL Ur Leukocyte Esterase (Negative) Urine RBC (0-5) /hpf Urine WBC (0-5) /hpf Ur Squamous Epith Cells (0-4) /hpf Amorphous Sediment (None) /hpf Urine Bacteria (None) /hpf Urine Mucus (None) /hpf Urine HCG, Qual (Not Detectd) Influenza Type A (PCR) Not Detected (Not Detectd) Influenza Type B (PCR) Not Detected (Not Detectd) RSV (PCR) Not Detected (Not Detectd) SARS-CoV-2 (PCR) Not Detected (Not Detectd) 09/24/23 09/24/23 09/24/23 Range/Units 01:28 01:28 02:12 WBC (3.8-10.6) k/uL RBC (3.80-5.40) m/uL Hgb (11.4-16.0) gm/dL Hct (34.0-46.0) % MCV (80.0-100.0) fL MCH (25.0-35.0) pg MCHC (31.0-37.0) g/dL RDW (11.5-15.5) % Plt Count (150-450) k/uL MPV Neutrophils % % Lymphocytes % % Monocytes % % Eosinophils % % Basophils % % Neutrophils # (1.3-7.7) k/uL Lymphocytes # (1.0-4.8) k/uL Monocytes # (0-1.0) k/uL Eosinophils # (0-0.7) k/uL Basophils # (0-0.2) k/uL Sodium (137-145) mmol/L Potassium (3.5-5.1) mmol/L Chloride (98-107) mmol/L Carbon Dioxide (22-30) mmol/L Anion Gap mmol/L BUN (7-17) mg/dL Creatinine (0.52-1.04) mg/dL Est GFR (CKD-EPI)AfAm (>60 ml/min/1.73 sqM) Est GFR (CKD-EPI)NonAf (>60 ml/min/1.73 sqM) Glucose (74-99) mg/dL Plasma Lactic Acid [place] 1.1 (0.7-2.0) mmol/L Calcium (8.4-10.2) mg/dL Total Bilirubin (0.2-1.3) mg/dL AST (14-36) U/L ALT (4-34) U/L Alkaline Phosphatase (38-126) U/L Troponin I (0.000-0.034) ng/mL Total Protein (6.3-8.2) g/dL Albumin (3.5-5.0) g/dL Amylase (30-110) U/L Lipase (23-300) U/L Urine Color Light Yellow Urine Appearance Clear (Clear) Urine pH 6.0 (5.0-8.0) Ur Specific [place] >1.050 H (1.001-1.035) Urine Protein Negative (Negative) Urine Glucose (UA) Negative (Negative) Urine Ketones Negative (Negative) Urine Blood Negative (Negative) Urine Nitrite Negative (Negative) Urine Bilirubin Negative (Negative) Urine Urobilinogen <2.0 (<2.0) mg/dL Ur Leukocyte Esterase Moderate H (Negative) Urine RBC 3 (0-5) /hpf Urine WBC 19 H (0-5) /hpf Ur Squamous Epith Cells 6 H (0-4) /hpf Amorphous Sediment Rare H (None) /hpf Urine Bacteria Many H (None) /hpf Urine Mucus Rare H (None) /hpf Urine HCG, Qual Not Detected (Not Detectd) Influenza Type A (PCR) (Not Detectd) Influenza Type B (PCR) (Not Detectd) RSV (PCR) (Not Detectd) SARS-CoV-2 (PCR) (Not Detectd) 09/24/23 Range/Units 02:12 WBC (3.8-10.6) k/uL RBC (3.80-5.40) m/uL Hgb (11.4-16.0) gm/dL Hct (34.0-46.0) % MCV (80.0-100.0) fL MCH (25.0-35.0) pg MCHC (31.0-37.0) g/dL RDW (11.5-15.5) % Plt Count (150-450) k/uL MPV Neutrophils % % Lymphocytes % % Monocytes % % Eosinophils % % Basophils % % Neutrophils # (1.3-7.7) k/uL Lymphocytes # (1.0-4.8) k/uL Monocytes # (0-1.0) k/uL Eosinophils # (0-0.7) k/uL Basophils # (0-0.2) k/uL Sodium (137-145) mmol/L Potassium (3.5-5.1) mmol/L Chloride (98-107) mmol/L Carbon Dioxide (22-30) mmol/L Anion Gap mmol/L BUN (7-17) mg/dL Creatinine (0.52-1.04) mg/dL Est GFR (CKD-EPI)AfAm (>60 ml/min/1.73 sqM) Est GFR (CKD-EPI)NonAf (>60 ml/min/1.73 sqM) Glucose (74-99) mg/dL Plasma Lactic Acid [place] (0.7-2.0) mmol/L Calcium (8.4-10.2) mg/dL Total Bilirubin (0.2-1.3) mg/dL AST (14-36) U/L ALT (4-34) U/L Alkaline Phosphatase (38-126) U/L Troponin I <0.012 (0.000-0.034) ng/mL Total Protein (6.3-8.2) g/dL Albumin (3.5-5.0) g/dL Amylase (30-110) U/L Lipase (23-300) U/L Urine Color Urine Appearance (Clear) Urine pH (5.0-8.0) Ur Specific [place] (1.001-1.035) Urine Protein (Negative) Urine Glucose (UA) (Negative) Urine Ketones (Negative) Urine Blood (Negative) Urine Nitrite (Negative) Urine Bilirubin (Negative) Urine Urobilinogen (<2.0) mg/dL Ur Leukocyte Esterase (Negative) Urine RBC (0-5) /hpf Urine WBC (0-5) /hpf Ur Squamous Epith Cells (0-4) /hpf Amorphous Sediment (None) /hpf Urine Bacteria (None) /hpf Urine Mucus (None) /hpf Urine HCG, Qual (Not Detectd) Influenza Type A (PCR) (Not Detectd) Influenza Type B (PCR) (Not Detectd) RSV (PCR) (Not Detectd) SARS-CoV-2 (PCR) (Not Detectd) Disposition Time of Disposition: 03:50 <Gema Ryan - Last Filed: 09/25/23 16:19> <Julia Arevalo - Last Filed: 09/25/23 17:34> Clinical Impression: Intractable abdominal pain Disposition: ADMITTED IP TO THIS HOSP Condition: Stable
--- NOTE | 2023-09-24 03:15 | CT ---
EXAM: CT Abdomen and Pelvis With Intravenous Contrast CLINICAL HISTORY: ITS.REASON CT Reason: ruq pain TECHNIQUE: Axial computed tomography images of the abdomen and pelvis with intravenous contrast. CTDI is 33.2 mGy and DLP is 1662.6 mGy-cm. This CT exam was performed using one or more of the following dose reduction techniques: automated exposure control, adjustment of the mA and/or kV according to patient size, and/or use of iterative reconstruction technique. COMPARISON: MRI liver 11/26/2021 FINDINGS: Lung bases: Unremarkable. No mass. No consolidation. ABDOMEN: Liver: 5.3 x 6.3 x 6.3 cm low-density lesion in the right hepatic lobe adjacent to the gallbladder. Similar to the prior although mildly increased in size. Few other liver low-density lesions similar to the prior and likely represent cysts. Gallbladder and bile ducts: Common bile duct, borderline dilated 6-7 mm. Similar. No obvious obstructing calcified stone. Pancreas: Unremarkable. No mass. No ductal dilation. Spleen: Unremarkable. No splenomegaly. Adrenals: Unremarkable. No mass. Kidneys and ureters: Nonobstructing left renal calculus. Small fat- containing right renal lesion/angiomyolipoma. No hydronephrosis. Symmetric renal enhancement. Stomach and bowel: Unremarkable. No obstruction. No mucosal thickening. PELVIS: Appendix: Normal appendix. Bladder: Unremarkable. No mass. Reproductive: Unremarkable as visualized. ABDOMEN and PELVIS: Intraperitoneal space: Unremarkable. No free air. No significant fluid collection. Bones/joints: Degenerative changes of the lumbosacral spine. No acute fracture. No dislocation. Soft tissues: Small fat-containing umbilical hernia. Vasculature: Unremarkable. No abdominal aortic aneurysm. Lymph nodes: Unremarkable. No enlarged lymph nodes. IMPRESSION: 1. 5.3 x 6.3 x 6.3 cm low-density lesion in the right hepatic lobe adjacent to the gallbladder. Similar to the prior although mildly increased in size. Likely represents a cyst. Other small liver cysts as on the prior. 2. Common bile duct, borderline dilated 6-7 mm. Similar. No obvious obstructing calcified stone. If further concern, consider ultrasound/MRCP. 3. Nonobstructing left renal calculus.
[2023-09-24 03:42] LABS: Amorphous Sediment,Urine Rare /hpf; Appearance,Urine Clear (Clear); Bacteria,Urine Many /hpf; Bilirubin,Urine Negative (Negative); Blood,Urine Negative (Negative); Color,Urine Light Yellow; Glucose,Urine (UA) Negative (Negative); Ketones,Urine Negative (Negative); Leukocyte Esterase,Urine Moderate (Negative); Mucus,Urine Rare /hpf; Nitrite,Urine Negative (Negative); Protein,Urine Negative (Negative); RBC,Urine 3 /hpf (0-5); Squamous Epithelial Cell,Urine 6 /hpf (0-4); Urobilinogen,Urine <2.0 mg/dL (<2.0); WBC,Urine 19 /hpf (0-5)
[2023-09-24] MEDS ORDERED: NALOXONE 0.4 MG/ML 1 ML VIAL IV PRN (03:59)
[2023-09-24] MEDS ORDERED: SODIUM CHLORIDE 0.9% 1,000 ML IV SCH (04:00)
[2023-09-24 04:26] LABS: Specific Gravity,Urine >1.050 (1.001-1.035)
--- NOTE | 2023-09-24 08:51 | NM ---
EXAMINATION TYPE: NM hepatobiliary w CCK DATE OF EXAM: 09/24/2023 8:39 AM COMPARISON: CT abdomen pelvis most recent from 09/24/2023. CLINICAL INDICATION:Female, 53 years old with history of RUQ abdominal pain; TECHNIQUE: The patient was given 5.13 mCi of Technetium 99m- as a radiotracer and multiple scintigrap hic images were obtained of the abdomen. Gallbladder function was also assessed after the administrat ion of ensure drink and additional scintigraphic images were obtained of the abdomen. A region of int erest was drawn over the gallbladder and a timing activity curve was generated. The gallbladder eject ion fraction was calculated. FINDINGS: Normal uptake of radiotracer was identified within the liver with excretion into the hepatic and comm on biliary ducts within 8 minutes. There was normal progressive washout of the liver over the course of the study. Radiotracer uptake within the gallbladder at 42 minutes as well as small bowel activity was identified at 10 minutes. Maximum calculated gallbladder ejection fraction is: 53% at 28minutes (Normal gallbladder ejection fraction is > 35%) IMPRESSION: 1. Normal hepatobiliary scan. 2. Normal ejection fraction.
[2023-09-24 08:52] VITALS: TEMP 98.1
[2023-09-24] MEDS: MORPHINE SULFATE 4 MG/ML SYRINGE IV PRN ×2 (09:50→14:48)
[2023-09-24] MEDS ORDERED: ONDANSETRON 4 MG/2 ML VIAL IVP PRN (10:33)
[2023-09-24 11:03] VITALS: RESP 20
--- NOTE | 2023-09-24 11:08 | P.GSHP ---
History of Present Illness H&P Date: 09/24/23 CHIEF COMPLAINT: Abdominal pain HISTORY OF PRESENT ILLNESS: This is a 53-year-old female who presented with right upper quadrant abdominal pain that started while around 10:30 last night. She has been very nauseous no vomiting. She reports that the pain radiates from the right upper quadrant to the back. She has been making sweats. Pain did eat pizza last night for dinner. She denies any fevers. Patient had a computed tomography scan abdomen and pelvis that showed low density lesion in the right hepatic lobe adjacent to the gallbladder, possible cyst and common bile duct was borderline dilated at 6-7 mm. Patient then had HIDA scan which was normal. Patient admitted to surgical service regarding right upper quadrant abdominal pain. PAST MEDICAL HISTORY: GERD, constipation PAST SURGICAL HISTORY: Tonsillectomy, Tubal Ligation, Uterine Ablation MEDICATIONS: See below ALLERGIES: See below SOCIAL HISTORY: No illicit drug use. REVIEW OF SYSTEMS: CONSTITUTIONAL: Denies fever or chills. HEENT: Denies blurred vision, vision changes, or eye pain. Denies hemoptysis CARDIOVASCULAR: Denies chest pain or pressure. RESPIRATORY: No shortness of breath. GASTROINTESTINAL: See HPI for pertinent findings HEMATOLOGIC: Denies bleeding disorders. GENITOURINARY: Denies any blood in urine or increased urinary frequency. SKIN: Denies pruitis. Denies rash. PHYSICAL EXAM: VITAL SIGNS: Reviewed GENERAL: Well-developed in no acute distress. HEENT: No sclera icterus. Extraocular movements grossly intact. Moist buccal mucosa. Head is atraumatic, normocephalic. No nasal drainage. ABDOMEN: Soft. Nondistended. Right upper quadrant tenderness with palpation NEUROLOGIC: Alert and oriented. Cranial nerves II through XII grossly intact. LABORATORY DATA: WBC 10.2 Hgb 15.8 platelets 252 INR 138 potassium is 4.2 creatinine 0.61 Lactic acid 1.1 LFTs normal Lipase 97 Troponin negative IMAGING: Computed tomography scan abdomen and pelvis reports 5.3 x 6.3 x 6.3 cm low dens ity lesion in the right hepatic lobe adjacent to the gallbladder. Similar to the prior although mildly increased in size. Likely represents a cyst or other small liver cyst as on prior CT. Common Bile duct, borderline dilated 6-7 mm. Similar. No obvious obstructing calcified stone. If further considered consider ultrasound/MRCP. Nonobstructing left renal calculus. HIDA scan normal. Normal ejection fraction ASSESSMENT: 1. Right upper quadrant abdominal pain 2. low density liver lesion, likely cyst on CT 3. CBD borderline dilated on CT PLAN: -Gallbladder ultrasound ordered -Patient tentatively scheduled for laparoscopic cholecystectomy today with Dr. Zambrano -Keep patient nothing by mouth for now -Continue IV fluids -Continue anti-emetics -Continue pain medication Physician Soap Boiler note has been reviewed by physician. Signing provider agrees with the documented findings, assessment, and plan of care. Past Medical History Past Medical History: GERD/Reflux Additional Past Medical History / Comment(s): CHANGE IN BOWEL HABITS, BLOATING, CONSTIPATION, ABD PAIN, N/V History of Any Multi-Drug Resistant Organisms: None Reported Past Surgical History: Tonsillectomy, Tubal Ligation, Uterine Ablation Past Anesthesia/Blood Transfusion Reactions: No Reported Reaction Additional Past Anesthesia/Blood Transfusion Reaction / Comment(s): MOUTH DOES NOT OPEN VERY WIDE Past Psychological History: Anxiety, Depression Smoking Status: Never smoker Past Alcohol Use History: None Reported Past Drug Use History: None Reported - Past Family History Mother Family Medical History: No Reported History Medications and Allergies Home Medications Medication Instructions Recorded Confirmed Type ALPRAZolam [Xanax] 1 mg PO BID PRN 09/24/23 09/24/23 History Venlafaxine HCl ER [Effexor Xr] 37.5 mg PO HS 09/24/23 09/24/23 History Venlafaxine HCl ER [Effexor Xr] 150 mg PO HS 09/24/23 09/24/23 History buPROPion [Wellbutrin] 100 mg PO DAILY 09/24/23 09/24/23 History traZODone HCL [Desyrel] 50 mg PO HS 09/24/23 09/24/23 History Allergies Allergy/AdvReac Type Severity Reaction Status Date / Time Sulfa (Sulfonamide Allergy Rash/Hives Verified 09/24/23 00:35 Antibiotics) sulfamethoxazole Allergy Rash/Hives Verified 09/24/23 08:52 [From Bactrim] trimethoprim [From Bactrim] Allergy Rash/Hives Verified 09/24/23 08:52 Surgical - Exam Vital Signs Temp Pulse Resp BP Pulse Ox 98.5 F 86 20 155/89 98 09/24/23 00:33 09/24/23 00:33 09/24/23 00:33 09/24/23 00:33 09/24/23 00:33 Results - Labs 09/24/23 01:28 09/24/23 01:28 Abnormal Lab Results - Last 24 Hours (Table) 09/24/23 09/24/23 09/24/23 Range/Units 01:28 01:28 01:28 Hct 46.3 H (34.0-46.0) % Glucose 105 H (74-99) mg/dL Ur Specific King >1.050 H (1.001-1.035) Ur Leukocyte Esterase Moderate H (Negative) Urine WBC 19 H (0-5) /hpf Ur Squamous Epith Cells 6 H (0-4) /hpf Amorphous Sediment Rare H (None) /hpf Urine Bacteria Many H (None) /hpf Urine Mucus Rare H (None) /hpf Diabetes panel 09/24/23 Range/Units 01:28 Sodium 138 (137-145) mmol/L Potassium 4.2 (3.5-5.1) mmol/L Chloride 101 (98-107) mmol/L Carbon Dioxide 26 (22-30) mmol/L BUN 14 (7-17) mg/dL Creatinine 0.61 (0.52-1.04) mg/dL Glucose 105 H (74-99) mg/dL Calcium 9.5 (8.4-10.2) mg/dL AST 29 (14-36) U/L ALT 17 (4-34) U/L Alkaline Phosphatase 83 (38-126) U/L Total Protein 7.3 (6.3-8.2) g/dL Albumin 4.3 (3.5-5.0) g/dL Calcium panel 09/24/23 Range/Units 01:28 Calcium 9.5 (8.4-10.2) mg/dL Albumin 4.3 (3.5-5.0) g/dL Pituitary panel 09/24/23 Range/Units 01:28 Sodium 138 (137-145) mmol/L Potassium 4.2 (3.5-5.1) mmol/L Chloride 101 (98-107) mmol/L Carbon Dioxide 26 (22-30) mmol/L BUN 14 (7-17) mg/dL Creatinine 0.61 (0.52-1.04) mg/dL Glucose 105 H (74-99) mg/dL Calcium 9.5 (8.4-10.2) mg/dL Adrenal panel 09/24/23 Range/Units 01:28 Sodium 138 (137-145) mmol/L Potassium 4.2 (3.5-5.1) mmol/L Chloride 101 (98-107) mmol/L Carbon Dioxide 26 (22-30) mmol/L BUN 14 (7-17) mg/dL Creatinine 0.61 (0.52-1.04) mg/dL Glucose 105 H (74-99) mg/dL Calcium 9.5 (8.4-10.2) mg/dL Total Bilirubin 0.5 (0.2-1.3) mg/dL AST 29 (14-36) U/L ALT 17 (4-34) U/L Alkaline Phosphatase 83 (38-126) U/L Total Protein 7.3 (6.3-8.2) g/dL Albumin 4.3 (3.5-5.0) g/dL
--- NOTE | 2023-09-24 11:43 | US ---
EXAMINATION TYPE: US gallbladder DATE OF EXAM: 09/24/2023 COMPARISON: Same day CT CLINICAL INDICATION: Female, 53 years old with history of Ruq pain; RUQ pain began last night TECHNIQUE: Multiple sonographic images of the right upper quadrant are obtained. FINDINGS: EXAM MEASUREMENTS: Liver Length: 14.5 cm Gallbladder Wall: 0.1 cm CBD: 0.4 cm Right Kidney: 10.4x4.8x5.4 cm Pancreas: Tail obscured by overlying bowel gas, duct dilated to 0.2cm Liver: largest liver cyst measures: 5.9x6.2x6.0cm Gallbladder: wnl Evidence for sonographic Atkins's sign: No CBD: CHD wnl, CBD mostly obscured Right Kidney: No hydronephrosis or masses seen as visualized exam limited by bowel gas, body habitus, and rib shadowing IMPRESSION: 1. No acute abdominal process visualized on ultrasound imaging. The gallbladder is distended similar to prior CT. Given patient's new dilated right upper quadrant common bile duct compared to 12/08/2021 consider MRCP if this concern for choledocholithiasis. 2. Liver cyst measuring up to 6.2 cm.
--- NOTE | 2023-09-24 15:28 | P.DS ---
Providers Date of admission: 09/24/23 04:00 Expected date of discharge: 09/24/23 Attending physician: Deniz Zambrano Primary care physician: Andrey Richter [facility] Course: Discharge diagnosis 1. Right upper quadrant abdominal pain likely secondary to liver cyst 2. low density liver lesion, likely cyst on CT 3. CBD borderline dilated on CT Hospital course This is a 53-year-old female who presented with right upper quadrant abdominal pain that radiates to her back. She had computed tomography scan abdomen and pelvis that showed low density lesion in the right hepatic lobe adjacent to the gallbladder, likely a liver cyst and common bile duct was borderline dilated at 6-7 mm. Patient then had HIDA scan which was normal. Gallbladder ultrasound showed no acute abdominal process. Gallbladder is distended similar to prior CT. Patient's new dilated right upper quadrant, bile duct compared to November 2021 consider MRCP if this is concerning for choledocholithiasis. Liver cyst measuring up to 6.2 cm. Liver enzymes are normal. White count is normal. Patient's right upper quadrant abdominal pain is likely due to liver cyst. Patient is tolerating diet. Her pain is controlled. She is stable for discharge with outpatient follow-up with Dr. Zambrano. Please refer to chart for any further details. Physician Farmworker [employer] note has been reviewed by physician. Signing provider agrees with the documented findings, assessment, and plan of care. Patient Condition at Discharge: Stable Plan - Discharge Summary New Discharge Prescriptions: Continue ALPRAZolam [Xanax] 1 mg PO BID PRN PRN Reason: Anxiety traZODone HCL [Desyrel] 50 mg PO HS Venlafaxine HCl ER [Effexor XR] 37.5 mg PO HS buPROPion [Wellbutrin] 100 mg PO DAILY Discontinued Venlafaxine HCl ER [Effexor Xr] 150 mg PO HS Discharge Medication List ALPRAZolam [Xanax] 1 mg PO BID PRN 09/24/23 [History] Venlafaxine HCl ER [Effexor XR] 37.5 mg PO HS 09/24/23 [History] buPROPion [Wellbutrin] 100 mg PO DAILY 09/24/23 [History] traZODone HCL [Desyrel] 50 mg PO HS 09/24/23 [History] Follow up Appointment(s)/Referral(s): Juan Richter MD [Primary Care Provider] - 1-2 days Deniz Zambrano MD [STAFF PHYSICIAN] - 1 Week Patient Instructions/Handouts: Acute Abdominal Pain (DC) Activity/Diet/Wound Care/Special Instructions: Take Tylenol and Motrin over the counter as needed for pain Discharge Disposition: HOME SELF-CARE
[2023-09-24 16:02] VITALS: BP 122/70; PULSE 74
== END 2023-09-24 15:53 | disposition home or self-care (01) ==
LOC: EC 00:28 → 6NMEDSUR 04:00
PROVIDERS: ADMIT Surgery; ATTEND Surgery
DX: R10.11 Right upper quadrant pain (principal); K76.89 Other specified diseases of liver; R93.2 Abnormal findings on diagnostic imaging of liver and biliary tract; K21.9 Gastro-esophageal reflux disease without esophagitis; F41.9 Anxiety disorder, unspecified; F32.A Depression, unspecified; Z20.822 Contact with and (suspected) exposure to COVID-19; Z79.899 Other long term (current) drug therapy; Z88.2 Allergy status to sulfonamides
CPT/HCPCS: 96376; 96374; 96375; 99285; 36415; 93005; 80053; 82150; 83605; 83690; 84484; 85025; 81001; 81025; 87636; 76705; 74177; 78227; G0378; A9537; J2270; J2405; J2805; Q9967

== ENCOUNTER → 2024-03-27 | Outpatient (CLI) | payer BC ==
--- NOTE | 2024-03-27 14:06 | MM ---
Reason for Exam: Screening (asymptomatic). Last mammogram was performed 2 year(s) and 10 month(s) ago. Patient History: Menarche at age 15. First Full-Term at age 23. Paternal aunt had breast cancer, age 50. Maternal aunt had breast cancer, age 50. Risk Values: Netta 5 year model risk: 0.9%. NCI Lifetime model risk: 7.8%. Prior Study Comparison: 12/15/2012 Bilateral Screening Mammogram, [facility]. 12/10/2016 Bilateral Screening Mammogram, [facility]. 05/22/2021 Bilateral Screening Mammogram, [facility]. Tissue Density: There are scattered areas of fibroglandular density. Findings: Analyzed By CAD. Right breast: There is no suspicious group of microcalcifications or new suspicious mass. Left breast: There is no suspicious group of microcalcifications or new suspicious mass. Overall Assessment: Negative, BI-RAD 1 Management: Screening Mammogram of both breasts in [address] [facility] will attempt to contact patient to return for supplemental views and ultrasound if indicated. Patient should continue monthly self-breast exams. A clinical breast exam by your physician is recommended on an annual basis. This exam should not preclude additional follow-up of suspicious palpable abnormalities. Note on Netta scores and lifetime risk: 1. A Netta score greater than 3% is considered moderate risk. If this is the case, consider specialist referral to assess eligibility for a risk reducing agent. 2. If overall lifetime risk for the development of breast cancer is 20% or higher, the patient may qualify for future screening with alternating mammogram and breast MRI. Electronically signed and approved by: Jayy Peguero DO
== END | disposition home or self-care (01) ==
LOC: RADMAMWWP 12:50
PROVIDERS: ATTEND Family Medicine
DX: Z12.31 Encounter for screening mammogram for malignant neoplasm of breast (principal); Z80.3 Family history of malignant neoplasm of breast
CPT/HCPCS: 77063; 77067